=== PATIENT | male | born 1975 | race Caucasian/White ===

== ENCOUNTER 2019-11-08 20:52 | Emergency (ER) | payer OTHER, SELFPAY ==
[2019-11-08 20:53] VITALS: BP 181/116; PULSE 87; RESP 18; TEMP 36.6; O2SAT 94; BMI 46.3
[2019-11-08 20:59] VITALS: BP 169/113; PULSE 92; RESP 18; TEMP 36.6; O2SAT 95
[2019-11-08 21:03] VITALS: BP 169/113; RESP 88; O2SAT 95
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
--- NOTE | 2019-11-08 21:41 | PC.NURSE ---
ED out of patients room. ed physician took C-collar off.
[2019-11-08 22:03] VITALS: BP 131/82; PULSE 88; RESP 18; O2SAT 96
[2019-11-08 22:11] VITALS: BP 131/82; PULSE 83; RESP 18; O2SAT 85
== END 2019-11-08 22:12 | disposition home or self-care (01) ==
PROVIDERS: Emergency Provider Emergency Medicine
DX: Z04.1 Encounter for examination and observation following transport accident (principal); V89.2XXA Person injured in unspecified motor-vehicle accident, traffic, initial encounter
CPT/HCPCS: 99281

== ENCOUNTER → 2020-07-17 17:31 | Outpatient (BNVA) | payer BC, SELFPAY | PROVIDERS: Visit Provider Nurse Practitioner Family | DX: Z20.828 Contact with and (suspected) exposure to other viral communicable diseases (principal) | CPT/HCPCS: 87635 ==

== ENCOUNTER → 2020-07-24 18:21 | Outpatient (BNVA) | payer BC, SELFPAY | PROVIDERS: Visit Provider Nurse Practitioner Family | DX: Z11.59 Encounter for screening for other viral diseases (principal) | CPT/HCPCS: 87635 ==

== ENCOUNTER → 2020-07-31 15:49 | Outpatient (BNVA) | payer BC, SELFPAY | PROVIDERS: Visit Provider Nurse Practitioner Family | DX: Z20.828 Contact with and (suspected) exposure to other viral communicable diseases (principal) | CPT/HCPCS: 87635 ==

== ENCOUNTER 2021-05-19 14:10 | Emergency (ER) | payer OTHER, SELFPAY ==
--- NOTE | 2021-05-19 14:31 | XR_ITS ---
WS: [id number] XR chest 1V portable [id number] REASON FOR EXAM: chest pain FINDINGS: The heart and mediastinum are within normal limits. No active pulmonary parenchymal or pleural disease is noted. The bony thorax is intact. XR/XR chest 1V portable [id number] IMPRESSION: No acute chest abnormality.
--- NOTE | 2021-05-19 14:31 | ECG_ITS ---
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 Measurements Intervals [place] Rate: 99 P: 39 GA: 141 QRS: -30 QRSD: 85 T: 44 QT: 320 QTc: 412 Interpretive Statements SINUS RHYTHM WITH SINUS ARRHYTHMIA BORDERLINE LEFT AXIS DEVIATION [QRS AXIS < -20] Compared to ECG 07/22/2019 17:11:17 No significant changes Electronically Signed On 05-20-2021 0:51:46 CDT by Bob Seals M.D. [id number]
[2021-05-19 15:03] VITALS: BP 123/73; PULSE 107; RESP 19; TEMP 37.4; O2SAT 96; BMI 46.3
--- NOTE | 2021-05-19 16:31 | ECG_ITS ---
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 Measurements Intervals [place] Rate: 95 P: 43 VT: 148 QRS: -16 QRSD: 90 T: 31 QT: 323 QTc: 406 Interpretive Statements SINUS RHYTHM Compared to ECG 05/19/2021 14:56:40 Sinus arrhythmia no longer present Electronically Signed On 05-20-2021 0:53:08 CDT by Bob Seals M.D. [email or web address] domin[facility] campusCellular Biomedicine Group ([employer])/store/OM/[id number]
[2021-05-19 18:56] LABS: Basophils # 0.1 10^3/uL (0.0-0.1); Basophils % 0.7 %; Eosinophils # 0.2 10^3/uL (0.0-0.8); Eosinophils % 1.1 %; Hematocrit 44.1 % (42.0-52.0); Hemoglobin 14.4 g/dL (11.7-16.6); Lymphocytes # 2.4 10^3/uL (0.8-4.8); Lymphocytes % 15.8 %; Mean Corpuscular HGB Conc 32.7 g/dL (30.0-36.0); Mean Corpuscular Hemoglobin 26.1 pg (28.0-34.0); Mean Corpuscular Volume 79.9 fL (80-94); Mean Platelet Volume 10.9 fL (7.4-10.4); Monocytes # 0.7 10^3/uL (0.2-0.9); Monocytes % 4.8 %; Neutrophils # 11.44 10^3/uL (1.8-7.7); Neutrophils % 76.9 %; Nucleated Red Blood Cells % 0 %; Platelet Count 258 10^3/cmm (130-400); Red Blood Count 5.52 10^6/uL (4.1-5.3); Red Cell Distribution Width 14.6 % (12.1-15.1); White Blood Count 14.9 10^3/uL (4.0-10.0)
[2021-05-19 19:15] LABS: Troponin(5th) Baseline 42 ng/L (0-15)
[2021-05-19 19:16] LABS: Alanine Aminotransferase 19 U/L (0-41); Albumin Level 4.5 g/dL (3.5-5.2); Alkaline Phosphatase 75 IU/L (40-130); Anion Gap 19.3 (5-19); Aspartate Amino Transferase 15 U/L (0-40); Blood Urea Nitrogen 13 mg/dL (6-20); Calcium 9.1 mg/dL (8.5-10.5); Carbon Dioxide 22 mmol/L (22-29); Chloride 99 mmol/L (98-107); Globulin 3.2 g/dL (1.3-4.6); Glucose 125 mg/dL (65-115); Osmolality Calculated 284 mOsm/kg (285-295); Potassium 4.3 mmol/L (3.5-5.1); Sodium 136 mmol/L (136-145); Total Bilirubin 0.6 mg/dL (0.15-1.2); Total Protein 7.7 g/dL (6.6-8.7)
[2021-05-19 20:47] LABS: Troponin 5 2HR 38.66 ng/L (0-15)
[2021-05-19 20:49] LABS: Troponin 5 2HR Delta -3.34 ABS# (0-10)
--- NOTE | 2021-05-20 00:56 | ED_ITS ---
HPI - Anxiety General: Chief Complaint: Anxiety Stated Complaint: severe chest pains, weak Time Seen by Provider: 05/20/21 00:56 History of Present Illness: HPI narrative: Patient is a 45-year-old male comes to the ED with chest pain. Patient says he was at work earlier today when symptoms started. He has had episodes like this in the past they were caused by anxiety and a panic attack. He states he was carrying some supplies and all of a sudden felt some heaviness to his chest. Denies any nausea/vomiting, diaphoresis. He does report that during chest heaviness he had some pain going into his left arm. Symptoms resolved when he came to the ED. Associated symptoms: Reports chest pain; Deny chills, fever(s), headache(s), nausea, palpitations or vomiting Review of Systems Const: Denies: fever(s), chills or fatigue Eyes: Denies: change in vision or eye discomfort ENMT: Denies: throat pain, odynophagia, nasal discharge or nasal congestion Card: Reports: chest pain; Denies: palpitations, edema, swelling of feet/ankles, dyspnea on exertion or orthopnea Resp: Denies: dyspnea, productive cough or non-productive cough GI: Denies: abdominal pain, nausea, vomiting, diarrhea, constipation or hematochezia : Denies: flank pain, difficulty urinating, dysuria or hematuria Musc: Denies: neck pain, back pain or extremity swelling Skin/Breast: Denies: rash or new lesions Neuro: Denies: headache(s), numbness in extremities or weakness in extremities PFS ED PFSH: Social History Smoking and tobacco status: never smoked Alcohol intake: current Alcohol intake frequency: holidays/special occasions only Physical Exam Const: COMMON NORMALS: no acute distress, patient oriented x3 and alert GENERAL APPEARANCE: cooperative and comfortable HENMT: COMMON NORMALS: normocephalic HEAD & SCALP: normocephalic MOUTH: Normal oral and palatal mucosa present THROAT: posterior oropharynx normal and uvula midline Neck/C-Spine: COMMON NORMALS: supple GENERAL: Yes normal visual inspection Resp: COMMON NORMALS: normal respiratory effort, No retractions, No use of accessory muscles and clear to auscultation bilaterally AUSCULTATION: clear to auscultation bilaterally Cardio: COMMON NORMALS: regular rate, regular rhythm, S1 normal heart sound present, S2 normal heart sound present, No gallops present (Cardio), No clicks present (Cardio), No murmurs present (Cardio) and Peripheral pulses 2+ throughout RATE: regular rate RHYTHM: regular rhythm HEART SOUNDS: S1 normal heart sound present and S2 normal heart sound present PERIPHERAL PULSES: Peripheral pulses 2+ throughout GI: COMMON NORMALS: Normal to inspection, nondistended, normoactive bowel sounds present, Soft to palpation, non-tender and no masses PALPATION: Yes Soft to palpation : COMMON NORMALS: Yes no CVA tenderness BLADDER/KIDNEY EXAM: Yes no CVA tenderness Back/Pelvis: COMMON NORMALS: no CVA tenderness Extremity: COMMON NORMALS: normal to inspection Neuro: COMMON NORMALS: patient oriented x3 and moves all extremities SENSORIUM/ORIENTATION: Yes alert Skin: GENERAL SKIN EXAM: dry skin Course ED course: Patient said his chest pain is completely resolved and he has not had any chest pain for the past couple hours. Vital Signs: Vital signs: Vital Signs Temperature 99.4 F 05/19/21 15:03 Pulse Rate 89 05/20/21 01:44 Respiratory Rate 18 05/20/21 01:44 Blood Pressure 125/80 05/20/21 01:44 Pulse Oximetry 99 05/20/21 01:44 MDM - Anxiety MDM Narrative: Medical decision making narrative: Patient is a 45-year-old male comes to the ED with chest pain/chest heaviness. He has a history of similar episodes due to anxiety and panic attacks. Symptoms resolved upon arrival to the ED. Vitals stable and exam of patient is benign. Troponin negative, chest x-ray showed no acute findings and EKGs showed normal sinus rhythm with no signs of TX noted. Rest of the labs were unremarkable. Patient was diagnosed with noncardiac chest pain and discharged home. He was told to follow-up with his PCP in 7 to 10 days reevaluation. Return to ED precautions given. Patient understood with plan. Imaging Data^: CXR: Attestation: I personally reviewed and interpreted this imaging study as follows: Radiologist's impression: [address] [address]DWyx ReportSigned Patient: Nicolas Krishna #: [id number]: 1975t#:[id number]/Sex: 45 / MADM Date: 05/19/21Loc: ERRoom/Bed:Attending Dr: Ordering Provider/Ordering MD: Laura Gallego Date of Service: 05/19/21 Procedure(s): XR chest 1V portable [id number] Accession Number(s): [id number] Report Number: [id number] WS: [id number] XR chest 1V portable [id number] REASON FOR EXAM: chest pain FINDINGS: The heart and mediastinum are within normal limits. No active pulmonary parenchymal or pleural disease is noted. The bony thorax is intact. XR/XR chest 1V portable [id number] IMPRESSION: No acute chest abnormality. Dictated By:Elliot Rhoades Jr MDSigned By:Elliot Rhoades Jr MDSigned Date/Time:05/19/211456DD/ 145 EKG Data^: EKG 1: Attestation: I personally reviewed and interpreted this EKG as follows: Interpretation: Chest X-Ray 05/19/21 14:31 IMPRESSION: No acute chest abnormality. [address] [address]Brjzwbzdshbxnmnfca ReportSigned Patient: Nicolas Krishna #: [id number]: 1975Acct#:[id number] ge/Sex: 45 / MADM Date: 05/19/21Loc: ERRoom/Bed:Attending Dr: Ordering Provider/Ordering MD: Laura Gallego Date of Service: 05/19/21 Procedure(s): ECG 12 lead EKG Accession Number(s): [id number] Report Number: [id number] [facility] Test Date: 2021-05-19 Pat Name: Nicolas Krishna Department: Room: Gender: Male Graphics Editor: : 1975 Requested By: Laura Gallego Order Number: [id number] Reading MD: Bob Seals M.D. Measurements Intervals [place] Rate: 99 P: 39 OR: 141 QRS: -30 QRSD: 85 T: 44 QT: 320 QTc: 412 Interpretive Statements SINUS RHYTHM WITH SINUS ARRHYTHMIA BORDERLINE LEFT AXIS DEVIATION [QRS AXIS < -20] Compared to ECG 07/22/2019 17:11:17 No significant changes Electronically Signed On 05-20-2021 0:51:46 CDT by Bob Seals M.D. [id number] Dictated By:oBb Seals MDSigned By:Bob Seals MDSigned Date/Time:05/20/21 0053DD/ 1456 Other EKG comments: Chest X-Ray 05/19/21 14:31 IMPRESSION: No acute chest abnormality. EKG 2: Attestation: I personally reviewed and interpreted this EKG as follows: Interpretation: Chest X-Ray 05/19/21 14:31 IMPRESSION: No acute chest abnormality. [address] [address]Oxcpczcyhyfjbijeaf ReportSigned Patient: Nicolas Krishna #: [id number]: 1975Acct#:[id number]/Sex: 45 / MADM Date: 05/19/21Loc: ERRoo/Bed:Attending Dr: Ordering Provider/Ordering MD: Laura Gallego Date of Service: 05/19/21 Procedure(s): ECG 12 lead EKG Accession Number(s): [id number] Report Number: [id number] [facility] Test Date: 2021-05-19 Pat Name: Nicolas Krishna Department: Room: Gender: Male Graphics Editor: : 1975 Requested By: Laura Gallego Order Number: [id number] Reading MD: Bob Seals M.D. Measurements Intervals [place] Rate: 95 P: 43 OR: 148 QRS: -16 QRSD: 90 T: 31 QT: 323 QTc: 406 Interpretive Statements SINUS RHYTHM Compared to ECG 05/19/2021 14:56:40 Sinus arrhythmia no longer present Electronically Signed On 05-20-2021 0:53:08 CDT by Bob Seals M.D. [id number] Dictated By:Bob Seals MDSigned By:Bob Seals MDSigned Date/Time:05/20/21 0054DD/ 1612 Other EKG comments: Chest X-Ray 05/19/21 14:31 IMPRESSION: No acute chest abnormality. Lab Data: Attestation: I reviewed the patient's lab results. Labs: Lab Results 05/19/21 05/19/21 05/19/21 Range/Units 18:50 18:50 18:50 WBC 14.9 H (4.0-10.0) 10^3/ uL RBC 5.52 H (4.1-5.3) 10^6/u L Hgb 14.4 (11.7-16.6) g/dL Hct 44.1 (42.0-52.0) % MCV 79.9 L (80-94) fL MCH 26.1 L (28.0-34.0) pg MCHC 32.7 (30.0-36.0) g/dL RDW 14.6 (12.1-15.1) % Plt Count 258 (130-400) 10^3/c mm MPV 10.9 H (7.4-10.4) fL Neut % (Auto) 76.9 % Lymph % (Auto) 15.8 % [place] % (Auto) 4.8 % Eos % (Auto) 1.1 % Baso % (Auto) 0.7 % Neut # (Auto) 11.44 H (1.8-7.7) 10^3/u L Lymph # (Auto) 2.4 (0.8-4.8) 10^3/u L [place] # (Auto) 0.7 (0.2-0.9) 10^3/u L Eos # (Auto) 0.2 (0.0-0.8) 10^3/u L Baso # (Auto) 0.1 (0.0-0.1) 10^3/u L Nucleated RBC % (a uto) 0 % Nucleated RBCs # 0.0 /100WBC Sodium 136 (136-145) mmol/L Potassium 4.3 (3.5-5.1) mmol/L Chloride 99 (98-107) mmol/L Carbon Dioxide 22 (22-29) mmol/L Anion Gap 19.3 H (5-19) BUN 13 (6-20) mg/dL Creatinine 0.7 (0.7-1.2) mg/dL GFR Calculation 122.0 (90-130) mL/min Glucose 125 H (65-115) mg/dL Calculated Osmolal ity 284 L (285-295) mOsm/k g Calcium 9.1 (8.5-10.5) mg/dL Total Bilirubin 0.6 (0.15-1.2) mg/dL AST 15 (0-40) U/L ALT 19 (0-41) U/L Alkaline Phosphata se 75 (40-130) IU/L Troponin T Baselin e 42 H (0-15) ng/L Troponin T 120 Min beto (0-15) ng/L Delta Troponin T (0-10) ABS# Total Protein 7.7 (6.6-8.7) g/dL Albumin 4.5 (3.5-5.2) g/dL Globulin 3.2 (1.3-4.6) g/dL 05/19/21 Range/Units 20:23 WBC (4.0-10.0) 10^3/ uL RBC (4.1-5.3) 10^6/u L Hgb (11.7-16.6) g/dL Hct (42.0-52.0) % MCV (80-94) fL MCH (28.0-34.0) pg MCHC (30.0-36.0) g/dL RDW (12.1-15.1) % Plt Count (130-400) 10^3/c mm MPV (7.4-10.4) fL Neut % (Auto) % Lymph % (Auto) % [place] % (Auto) % Eos % (Auto) % Baso % (Auto) % Neut # (Auto) (1.8-7.7) 10^3/u L Lymph # (Auto) (0.8-4.8) 10^3/u L [place] # (Auto) (0.2-0.9) 10^3/u L Eos # (Auto) (0.0-0.8) 10^3/u L Baso # (Auto) (0.0-0.1) 10^3/u L Nucleated RBC % (a uto) % Nucleated RBCs # /100WBC Sodium (136-145) mmol/L Potassium (3.5-5.1) mmol/L Chloride (98-107) mmol/L Carbon Dioxide (22-29) mmol/L Anion Gap (5-19) BUN (6-20) mg/dL Creatinine (0.7-1.2) mg/dL GFR Calculation (90-130) mL/min Glucose (65-115) mg/dL Calculated Osmolal ity (285-295) mOsm/k g Calcium (8.5-10.5) mg/dL Total Bilirubin (0.15-1.2) mg/dL AST (0-40) U/L ALT (0-41) U/L Alkaline Phosphata se (40-130) IU/L Troponin T Baselin e (0-15) ng/L Troponin T 120 Min beto 38.66 H (0-15) ng/L Delta Troponin T -3.34 L (0-10) ABS# Total Protein (6.6-8.7) g/dL Albumin (3.5-5.2) g/dL Globulin (1.3-4.6) g/dL Discharge Plan Discharge Patient Disposition: Home Clinical Impression: Chest pain, non-cardiac Condition: Stable Prescriptions: No Action No Known Home Medications RF: 0 Discharge Orders: Discharge ED (Routine); Ordered 05/20/21 Ordered By: Napoleon Gaspar Discharge Diet: Regular Discharge Activity: Resume usual activity Patient Instructions: Noncardiac Chest Pain (ED) Activity Restrictions/Additional Instructions: Follow-up with medical provider as directed in 7 to 10 days for reevaluation. Punctured drink plenty fluids and stay hydrated. Return to the ER or your medical provider if condition worsens. Please read and understand discharge instructions. Thank you for choosing [facility] for your healthcare needs today. Please realize this is an emergency room and that we are providing you with a medical screening exam and this may not be complete and all inclusive of all the testing and or work up that you may need to determine your ailment or severity of your illness. It is very important that you follow up as instructed or that you return to the Emergency Department should you have concerns or if your condition changes or worsens in any way. Coding Level of Care Code ED Incident Analyst for Jamilah Otero Exam Comprehensive
[2021-05-20 01:44] VITALS: BP 125/80; PULSE 89; RESP 18; O2SAT 99
== END 2021-05-20 01:44 | disposition home or self-care (01) ==
PROVIDERS: Physician Assistant; Emergency Provider Physician Assistant
DX: R07.89 Other chest pain (principal)
CPT/HCPCS: 36415; 71045; 80053; 84484; 85025; 93005; 99283

== ENCOUNTER 2022-04-07 19:42 | Emergency (ER) | payer OTHER, MEDICAID, SELFPAY ==
[2022-04-07 19:52] VITALS: BP 148/91; PULSE 90; RESP 18; TEMP 37; O2SAT 98
--- NOTE | 2022-04-07 19:59 | W.ED.SKABFB ---
HPI - Skin/Abscess/Foreign Bdy General: Chief complaint: Skin/Abscess/Foreign Body Stated complaint: Left arm bug bite/swelling Time Seen by Provider: 04/07/22 19:58 History of Present Illness: 46-year-old male patient comes in today for redness and tenderness to the left antecubital space of the arm. Patient given blood 3 days ago and then noticed some swelling and tenderness to the lateral aspect of the arm. Patient gave blood on the medial aspect. No significant swelling or other abnormality is noted. Patient reported no fever. Patient has had a few bug bites. Associated symptoms: Deny fever(s) Review of Systems Const: Denies: fever(s) Card: Denies: chest pain Resp: Denies: dyspnea Skin/Breast: Reports: erythema PFSH ED PFSH: Social History Smoking and tobacco status: never smoked Alcohol intake: current Alcohol intake frequency: holidays/special occasions only Physical Exam Const: COMMON NORMALS: alert HENMT: COMMON NORMALS: normocephalic HEAD & SCALP: normocephalic Neck/C-Spine: COMMON NORMALS: full ROM Resp: COMMON NORMALS: normal respiratory effort Cardio: COMMON NORMALS: regular rate RATE: regular rate Neuro: SENSORIUM/ORIENTATION: Yes alert Skin: NARRATIVE SKIN EXAM: Area of redness and induration noted to the antecubital space of the left arm on the lateral side. Patient also had some mild bruising and a needle puncture jung on the medial aspect of the arm. There is no redness or induration noted on that spot. LESIONS: lesion noted Course Vital Signs: Vital signs: Vital Signs Temperature 98.6 F 04/07/22 19:52 Pulse Rate 90 04/07/22 19:52 Respiratory Rate 18 04/07/22 19:52 Blood Pressure 148/91 04/07/22 19:52 Pulse Oximetry 98 04/07/22 19:52 MDM - Skin/Abscess/Foreign Bdy Medicial Decision Making Patient comes in today for concerns of redness and tenderness to the left arm. Patient has a small area of redness approximately 4 cm with a centralized indurated lesion to the lateral antecubital space. Differential diagnosis includes cellulitis, abscess, thrombophlebitis, local reaction to insect bite. I suspect that this is most likely an insect bite that is either got a mild infection or just some localized reaction. I do not believe this is secondary to patient's IV from his blood donation as the lesion is lateral to the injection site. Patient reported understanding of care plan we will go ahead and cover with antibiotics, and some steroid cream to help with discomfort. Patient reported understanding and agreed to plan. Discharge Plan Discharge Patient Disposition: Home Clinical Impression: Infected insect bite Qualifiers: Encounter type: initial encounter Qualified Code(s): W57.XXXA - Bitten or stung by nonvenomous insect and other nonvenomous arthropods, initial encounter Condition: Stable Prescriptions: New amoxicillin-pot clavulanate 875-125 mg tablet 1 tab PO BID Qty: 14 0RF triamcinolone acetonide 0.1 % cream 1 applic topical BID Qty: 30 0RF Discharge Orders: Discharge ED (Routine); Ordered 04/07/22 Ordered By: Mak Mcnulty Discharge Diet: Usual diet Discharge Activity: Increase activity as tolerated Patient Instructions: Cellulitis (ED) Activity Restrictions/Additional Instructions: Take antibiotics 1 tablet twice a day for 7 days. Drink plenty of water with medication. Use triamcinolone cream 2-3 times daily to the area of redness until improved. Follow-up with primary care as needed. Return to ER for new concerns. Coding Level of Care Code ED Harness Builder for Jamilah Oteor
[2022-04-07] MEDS: amoxicillin-clav 875-125 mg Tablet 1 TAB PO (20:25)
[2022-04-07] MEDS: triamcinolone 0.1% cream 15 gm 1 APPLIC TOPICAL (20:25)
== END 2022-04-07 20:27 | disposition home or self-care (01) ==
PROVIDERS: Emergency Provider Nurse Practitioner Family
DX: L08.9 Local infection of the skin and subcutaneous tissue, unspecified (principal); S50.362A Insect bite (nonvenomous) of left elbow, initial encounter; W57.XXXA Bitten or stung by nonvenomous insect and other nonvenomous arthropods, initial encounter
CPT/HCPCS: 99283

== ENCOUNTER 2022-08-12 06:00 | Outpatient (RCR) | payer OTHER, MEDICAID, SELFPAY | END 2022-08-23 23:59 | disposition home or self-care (01) | LOC: SPT 06:00 | PROVIDERS: Visit Provider Family Medicine Adult Medicine | DX: M54.6 Pain in thoracic spine (principal) | CPT/HCPCS: 97110; 97161 ==

== ENCOUNTER 2022-08-24 06:00 | Outpatient (RCR) | payer OTHER, MEDICAID, SELFPAY | END 2022-09-22 23:59 | disposition home or self-care (01) | LOC: SPT 06:00 | PROVIDERS: Visit Provider Family Medicine Adult Medicine | DX: M54.6 Pain in thoracic spine (principal) | CPT/HCPCS: 97110 ==

== ENCOUNTER 2022-09-23 06:00 | Outpatient (RCR) | payer OTHER, MEDICAID, SELFPAY | END 2022-09-30 11:43 | disposition home or self-care (01) | LOC: SPT 06:00 | PROVIDERS: Visit Provider Family Medicine Adult Medicine | DX: M54.6 Pain in thoracic spine (principal) | CPT/HCPCS: 97110 ==

== ENCOUNTER 2023-01-11 08:15 | Outpatient (CLI) | payer MEDICAID, SELFPAY ==
--- NOTE | 2023-01-11 08:25 | XR_ITS ---
WS: [id number] EXAMINATION: XR thoracic spine 3V* [id number] REASON FOR EXAM: Thoracic spine pain COMPARISON: None available. ORDER DATE: 01/11/2023 8:25 AM FINDINGS: There is normal alignment. The disc spaces are well-maintained. There is generalized marginal osteoph ytes throughout most of the thoracic line without focal osteolytic or osteoblastic change. XR/XR thoracic spine 3V* [id number] IMPRESSION: Minor osteoarthritic degenerative changes.
== END 2023-01-11 08:16 | disposition home or self-care (01) ==
LOC: RAD 08:19
PROVIDERS: PCP Family Medicine Adult Medicine; Visit Provider Physician Assistant
DX: M47.894 Other spondylosis, thoracic region (principal); M54.6 Pain in thoracic spine
CPT/HCPCS: 72072

== ENCOUNTER → 2023-03-31 09:01 | Outpatient (BNVA) | payer MEDICAID, SELFPAY | PROVIDERS: PCP Family Medicine Adult Medicine; Visit Provider Physician Assistant | DX: M54.50 Low back pain, unspecified (principal); M54.6 Pain in thoracic spine | CPT/HCPCS: 72072; 72110 ==

== ENCOUNTER 2025-08-01 17:04 | Emergency (ER) | payer MEDICAID, SELFPAY ==
--- NOTE | 2025-08-01 16:53 | XRR_ITS ---
PROCEDURE INFORMATION: Exam: XR Chest Exam date and time: 08/01/2025 5:11 PM Age: 49 years old Clinical indication: Pain; Chest pressure; Additional info: Chest pain TECHNIQUE: Imaging protocol: Radiologic exam of the chest. Views: 1 view. COMPARISON: CR XR chest 1V portable [id number] 05/19/2021 2:43 PM FINDINGS: Lungs: Unremarkable. No consolidation. Pleural spaces: Unremarkable. No pleural effusion. No pneumothorax. Heart/Mediastinum: Unremarkable. No cardiomegaly. Vasculature: Mild aortic atherosclerosis. Bones/joints: Unremarkable. XR/XR chest 1V portable [id number] IMPRESSION: No acute findings.
[2025-08-01 17:05] VITALS: BP 137/106; PULSE 102; RESP 20; TEMP 37.3; O2SAT 98; BMI 41.9
--- NOTE | 2025-08-01 17:09 | ECG_ITS ---
[employer] [facility] Test Date: 2025-08-01 Pat Name: Nicolas Krishna Department: Room: Gender: Male Cooperative Education Coordinator: : 1975 Requested By: Bre Lazo Order Number: [id number] Celena MD: AISLINN SUN Measurements Intervals [place] Rate: 105 P: 42 NV: 149 QRS: -23 QRSD: 90 T: 29 QT: 315 QTc: 417 Interpretive Statements SINUS TACHYCARDIA BORDERLINE LEFT AXIS DEVIATION [QRS AXIS < -20] ABNORMAL RHYTHM ECG Compared to ECG 05/19/2021 16:12:26 Sinus rhythm no longer present Electronically Signed On 08-04-2025 23:18:37 CDT by AISLINN SUN [id number]
--- NOTE | 2025-08-01 17:25 | W.ED.ARRPALP ---
HPI - Arrhythmia/Palpitations General: Chief Complaint: Arrhythmia/Palpitations Stated Complaint: SVT - near syncope Time Seen by Provider: 08/01/25 17:05 History of Present Illness: 49-year-old man with a history of anxiety, degenerative disc disease but no known other medical problems who presents to the emergency room by ambulance after having a near syncopal episode. He became very lightheaded. The EMS reports that his heart rate was around 200. He was given some adenosine heart rate came down. On presentation here he is around 100. No chest pain. No abdominal pain. No nausea or vomiting. No altered mental status. No focal motor deficits. He had no previous episodes Related Data Previous Rx's ?Medication ?Instructions ?Recorded fluticasone propionate 50 1 spray intranasal DAILY PRN nasal 10/18/23 mcg/actuation nasal congestion #16 grams spray,suspension (Flonase Allergy Relief) metoprolol tartrate 25 mg tablet 12.5 mg (1/2 x 25 mg) PO BID #30 08/01/25 tabs Allergies Allergy/AdvReac Type Severity Reaction Status Date / Time No Known Allergies Allergy Verified 01/14/25 08:24 Review of Systems Narrative: Constitutional symptoms: Negative except as documented in HPI. Skin symptoms: Negative except as documented in HPI. Eye symptoms: Negative except as documented in HPI. ENMT symptoms: Negative except as documented in HPI. Respiratory symptoms: Negative except as documented in HPI. Cardiovascular symptoms: Negative except as documented in HPI. Gastrointestinal symptoms: Negative except as documented in HPI. Genitourinary symptoms: Negative except as documented in HPI. Musculoskeletal symptoms: Negative except as documented in HPI. Neurologic symptoms: Negative except as documented in HPI. Psychiatric symptoms: Negative except as documented in HPI. Endocrine symptoms: Negative except as documented in HPI. PFS ED PFSH: Medical History (Updated 08/01/25 @ 19:01 by Bre Mars MD) Left-sided chest wall pain Dysplastic nevus Basal cell carcinoma of head Basal cell carcinoma of back Skin tags, multiple acquired Dermatofibroma of eyelid Left-sided thoracic back pain Anxiety Social History (Updated 01/14/25 @ 08:50 by Jami Lennon NP) Smoking and tobacco/nicotine status: current every day tobacco/nicotine user smokeless tobacco Smokeless tobacco user: chewing tobacco Alcohol intake: current Alcohol intake frequency: holidays/special occasions only Alcohol type: beer Substance/Drug Use: never Adopted: No Caregiver/support person: No Lives independently: Yes Physical Exam Narrative: EXAM NARRATIVE: General: Alert, no acute distress. Skin: Warm, dry. Head: Normocephalic, atraumatic. Neck: Supple, trachea midline. Eye: Extraocular movements are intact. Ears, nose, mouth and throat: mucosa moist. Cardiovascular: Regular, mildly tachycardic, normal peripheral perfusion. Respiratory: Lungs are clear to auscultation, respirations are non-labored, breath sounds are equal, Symmetrical chest wall expansion. Gastrointestinal: Soft, Nontender, Non distended Musculoskeletal: Normal ROM, no deformity. Neurological: Alert and oriented, No focal neurological deficit observed. Psychiatric: Cooperative, appropriate mood & affect. Course Vital Signs: Vital signs: Vital Signs Temperature 99.1 F 08/01/25 17:05 Pulse Rate 95 08/01/25 19:23 Respiratory Rate 20 H 08/01/25 19:23 Blood Pressure 132/87 08/01/25 19:23 Pulse Oximetry 96 08/01/25 19:23 Oxygen Delivery Me thod Room Air 08/01/25 18:22 MDM - Arrhythmia/Palpitations Medical Decision Making Medical decision making: Differential diagnosis including but not limited to and based on the above HPI, review of systems and physical exam: for patient with palpitations: atrial fibrillation with rapid ventricular response. ventricular tachycardia. sinus tachycardia. PVCs. also concern for underlying issues causing tachycardia. Infection, electrolyte abnormalities and thyroid issues. Orders placed to evaluate differential diagnosis based on the above differential, HPI and physical exam EKG: Time 1709. Rate 105. Sinus tachycardia, No ST-T changes, no ectopy, normal NH & QRS intervals, This was reviewed and interpreted by myself the ER physician at 1715 Chest x-ray: No acute process. No infiltrate. No pneumothorax. This was reviewed and interpreted by myself the emergency room physician. I also reviewed the radiology report. Lab Review: Laboratory results were reviewed and interpreted by myself the emergency room physician. Mild leukocytosis. No anemia. No renal failure. Urinalysis is negative for infection. Flu COVID and RSV are negative. Troponin is negative. Consultation: I spoke with Dr. Seals who is on-call for cardiology. He recommends follow-up within about a week and an urgent monitor car operator. We both agree that the patient driving is likely not a good idea and I discussed this with the patient and he agrees. Syncope while driving a schoolbus or an automobile could be tragic. I reviewed the patient's medical record. Reexamination: Patient remained stable. No increased work of breathing. No altered mental status. No focal motor deficits. Assessment and plan: Tachycardia Hypertension ?IV labetalol in the emergency room. Home on metoprolol - Discharged home - Discussed plan with patient. Answered any questions. - Evaluation and treatment of this problem were appropriate in the emergency setting. Lab Data 08/01/25 17:10 08/01/25 17:10 Radiology Impressions Chest X-Ray 08/01/25 16:53 IMPRESSION: No acute findings. Laboratory Results WBC 13.91 10^3/uL (3.29-11.43) H 08/01/25 17:10 RBC 5.66 10^6/uL (3.85-5.65) H 08/01/25 17:10 Hgb 15.00 g/dL (11.27-16.99) 08/01/25 17:10 Hct 45.4 % (37-53) 08/01/25 17:10 MCV 80.2 fl (82-101) L 08/01/25 17:10 MCH 26.5 pg (27-33) L 08/01/25 17:10 MCHC 33.0 g/dL (30-55) 08/01/25 17:10 RDW 14.1 % (12.1-15.1) 08/01/25 17:10 Plt Count 339 10^3/cmm (157-399) 08/01/25 17:10 MPV 10.3 fL (7.4-10.4) 08/01/25 17:10 Neut % (Auto) 60.4 % 08/01/25 17:10 Lymph % (Auto) 27.6 % 08/01/25 17:10 [place] % (Auto) 7.1 % 08/01/25 17:10 Eos % (Auto) 3.1 % 08/01/25 17:10 Baso % (Auto) 1.0 % 08/01/25 17:10 Neut # (Auto) 8.40 10^3/uL (1.8-7.7) H 08/01/25 17:10 Lymph # (Auto) 3.8 10^3/uL (0.8-4.8) 08/01/25 17:10 [place] # (Auto) 1.0 10^3/uL (0.2-0.9) H 08/01/25 17:10 Eos # (Auto) 0.4 10^3/uL (0.0-0.8) 08/01/25 17:10 Baso # (Auto) 0.1 10^3/uL (0.0-0.1) 08/01/25 17:10 Nucleated RBC % (auto) 0 % 08/01/25 17:10 Nucleated RBCs # 0.0 /100WBC 08/01/25 17:10 Sodium 140 mmol/L (136-145) 08/01/25 17:10 Potassium 4.5 mmol/L (3.5-5.1) 08/01/25 17:10 Chloride 98 mmol/L (98-107) 08/01/25 17:10 Carbon Dioxide 26 mmol/L (22-29) 08/01/25 17:10 Anion Gap 20.5 (5-19) H 08/01/25 17:10 BUN 15 mg/dL (6-20) 08/01/25 17:10 Creatinine 0.8 mg/dL (0.7-1.2) 08/01/25 17:10 GFR Calculation 102.7 mL/min (90-130) 08/01/25 17:10 Glucose 160 mg/dL (65-115) H 08/01/25 17:10 Calculated Osmolality 294 mOsm/kg (285-295) 08/01/25 17:10 Lactic Acid 2.4 mmol/L (0.5-2.2) H 08/01/25 17:10 Calcium 10.1 mg/dL (8.5-10.5) 08/01/25 17:10 Magnesium 1.9 mg/dL (1.7-2.3) 08/01/25 17:10 Total Bilirubin 0.6 mg/dL (0.15-1.2) 08/01/25 17:10 AST 18 U/L (0-40) 08/01/25 17:10 ALT 29 U/L (0-41) 08/01/25 17:10 Alkaline Phosphatase 81 U/L (40-130) 08/01/25 17:10 Troponin T Baseline < 6 ng/L (0-15) 08/01/25 17:10 Troponin T 120 Minute 11.88 ng/L (0-15) 08/01/25 19:08 Delta Troponin T 5.39736 ABS# (0-10) 08/01/25 19:08 NT-Pro-B Natriuret Pep < 36 pg/mL (0-125) 08/01/25 17:10 Total Protein 8.3 g/dL (6.6-8.7) 08/01/25 17:10 Albumin 4.8 g/dL (3.5-5.2) 08/01/25 17:10 Globulin 3.5 g/dL (1.3-4.6) 08/01/25 17:10 TSH 4.06 uIU/mL (0.27-4.20) 08/01/25 17:10 Urine Color Yellow (Yellow) 08/01/25 17:33 Urine Appearance Clear (CLEAR) 08/01/25 17:33 Urine pH 6.0 (5-7) 08/01/25 17:33 Ur Specific [place] 1.007 (1.005-1.030) 08/01/25 17:33 Urine Protein Negative (Negative) 08/01/25 17:33 Urine Glucose (UA) Trace (Normal) H 08/01/25 17:33 Urine Ketones Negative (Negative) 08/01/25 17:33 Urine Blood Negative (Negative) 08/01/25 17:33 Urine Nitrate Negative (Negative) 08/01/25 17:33 Urine Bilirubin Negative (Negative) 08/01/25 17:33 Urine Urobilinogen 0.2 mg/dL (Negative) 08/01/25 17:33 Ur Leukocyte Esterase Negative (Negative) 08/01/25 17:33 Urine RBC None /hpf (0-2) 08/01/25 17:33 Urine WBC None /hpf (0-5) 08/01/25 17:33 Ur Squamous Epith Cells None /hpf (0-5) 08/01/25 17:33 Amorphous Sediment Not Reportable 08/01/25 17:33 Urine Bacteria None /hpf (NONE) 08/01/25 17:33 Urine Mucus None /hpf 08/01/25 17:33 Influenza A (PCR) Negative (Negative) 08/01/25 17:18 Influenza Type B (PCR) Negative (Negative) 08/01/25 17:18 RSV (PCR) Negative (Negative) 08/01/25 17:18 SARS-CoV-2 (PCR) Negative (Negative) 08/01/25 17:18 All radiology interpretation(s) finalized by discharge Discharge Plan Discharge Patient Disposition: Home Clinical Impression: Supraventricular tachycardia Condition: Stable Prescriptions: New metoprolol tartrate 25 mg tablet 12.5 mg PO BID Qty: 30 1RF No Action fluticasone propionate [Flonase Allergy Relief] 50 mcg/actuation spray,suspension 1 spray intranasal DAILY PRN (Reason: nasal congestion) Qty: 16 0RF Rx Instructions: administer into each nostril Discharge Orders: Discharge ED (Routine); Ordered 08/01/25 Ordered By: Bre Mars Referrals: Santiago Bejarano MD [Primary Care Provider, Family Practice] Bob Seals M.D [Physician, Cardiology] - 4-7 days Referral Note: Please call for a follow-up appointment with cardiology Discharge Diet: Usual diet Discharge Activity: Increase activity as tolerated Patient Instructions: Opioid Safety, Pain Management, Patient Portal & [place] Instructions Activity Restrictions/Additional Instructions: HOld off driving until you are cleared by your pcp or cardiogy Thank you for choosing [facility] for your healthcare needs today. You have been screened and evaluated and felt safe for discharge. Health conditions do change or evolve sometimes and as such it is important that you follow up with your Primary Doctor to be re checked, 3-5 days is a general good time frame for follow up. You are always welcome to return to the ED for re assessment if your symptoms are worsening or you have new concerns Stand Alone Forms: Work/School Release Print Language: Welsh Coding Level of Care Code ED Geriatric Nurse for Jamilah Otero
[2025-08-01 17:39] LABS: Hematocrit 45.4 % (37-53); Hemoglobin 15.00 g/dL (11.27-16.99); Mean Corpuscular HGB Conc 33.0 g/dL (30-55); Mean Corpuscular Hemoglobin 26.5 pg (27-33); Mean Corpuscular Volume 80.2 fl (82-101); Nucleated Red Blood Cells % 0 %; Platelet Count 339 10^3/cmm (157-399); Red Blood Count 5.66 10^6/uL (3.85-5.65); White Blood Count 13.91 10^3/uL (3.29-11.43)
[2025-08-01] MEDS: labetalol 5 mg/mL SDV 20mL 20 MG IVP (17:50)
[2025-08-01 18:04] VITALS: BP 145/105; PULSE 99; O2SAT 95
[2025-08-01 18:22] VITALS: BP 131/87; PULSE 99; RESP 17; O2SAT 95
[2025-08-01 18:27] LABS: Lactic Sepsis W/Reflex 2.4 mmol/L (0.5-2.2)
[2025-08-01 18:33] LABS: Troponin(5th) Baseline < 6 ng/L (0-15)
[2025-08-01 18:35] LABS: Alanine Aminotransferase 29 U/L (0-41); Albumin Level 4.8 g/dL (3.5-5.2); Alkaline Phosphatase 81 U/L (40-130); Anion Gap 20.5 (5-19); Aspartate Amino Transferase 18 U/L (0-40); Blood Urea Nitrogen 15 mg/dL (6-20); Calcium 10.1 mg/dL (8.5-10.5); Carbon Dioxide 26 mmol/L (22-29); Chloride 98 mmol/L (98-107); Creatinine Clr Calc Pharmacy 143.9513; Globulin 3.5 g/dL (1.3-4.6); Glucose 160 mg/dL (65-115); Magnesium 1.9 mg/dL (1.7-2.3); NT Pro B Type Natriuretic Pept < 36 pg/mL (0-125); Osmolality Calculated 294 mOsm/kg (285-295); Potassium 4.5 mmol/L (3.5-5.1); Sodium 140 mmol/L (136-145); Thyroid Stimulating Hormone 4.06 uIU/mL (0.27-4.20); Total Protein 8.3 g/dL (6.6-8.7)
[2025-08-01 18:44] LABS: Glucose Urine UA Trace (Normal); Nitrate Urine Negative (Negative); Specific Gravity, Urine 1.007 (1.005-1.030)
[2025-08-01 18:46] VITALS: BP 135/81; PULSE 104; RESP 17; O2SAT 95
[2025-08-01 19:15] LABS: Respiratory Syncytial Virus Ce NEGATIVE (Negative); SARS-CoV-2 PCR NEGATIVE (Negative)
--- NOTE | 2025-08-01 19:15 | DCPLANNER ---
Sent to cardiology
[2025-08-01 19:20] LABS: Reflex Lactate Order REFLEX LACTIC ORDERD
[2025-08-01 19:23] VITALS: BP 132/87; PULSE 95; RESP 20; O2SAT 96
[2025-08-01 19:32] LABS: Troponin 5 2HR 11.88 ng/L (0-15); Troponin 5 2HR Delta 5.88001 ABS# (0-10)
== END 2025-08-01 19:24 | disposition home or self-care (01) ==
PROVIDERS: Emergency Provider Emergency Medicine; PCP Family Medicine Adult Medicine
DX: I47.10 Supraventricular tachycardia, unspecified (principal); Z11.52 Encounter for screening for COVID-19; F17.220 Nicotine dependence, chewing tobacco, uncomplicated; Z85.828 Personal history of other malignant neoplasm of skin
CPT/HCPCS: 36415; 71045; 80053; 81001; 83605; 83735; 83880; 84443; 84484; 85025; 87040; 87637; 93005; 96374; 99285; J3490; J9999

== ENCOUNTER → 2025-08-06 14:13 | Outpatient (BNVA) | payer MEDICAID, SELFPAY | PROVIDERS: PCP Family Medicine; Referring Provider Emergency Medicine; Visit Provider Internal Medicine Cardiovascular Disease | DX: R07.89 Other chest pain (principal); R94.31 Abnormal electrocardiogram [ECG] [EKG] | CPT/HCPCS: 93005 ==

== ENCOUNTER 2025-10-07 11:34 | Outpatient (CLI) | payer MEDICAID, SELFPAY ==
--- NOTE | 2025-10-07 | ECG_ITS ---
[employer] Test Date: 2025-10-07 Pat Name: Nicolas Krishna Department: Room: Gender: Male University Registrar: : 1975 Requested By: Daniela Sun Order Number: [id number] Reading MD: DANIELA SUN Interpretive Statements Lung unchanged pre/post procedure; Intraprocedure shortess of breath; Symptoms resoled by discharge EXERCISE DATA: The patient was exercised by Casey protocol. Baseline heart rate was 84 beats per minute. Baseline blood pressure was 135/82 millimeters of mercury. Target heart rate was 170 beats per minute. Maximum heart rate achieved was 152, which was 89 % of the target heart rate. Maximum blood pressure was 167/87 millimeters of mercury. Total exercise time was 3 minutes 57 seconds. Maximum METs achieved was 7.0, maximum VO2 was 24.5. The reason for ending the test was maximum effort achieved. The patient complained of shortness of breath during the stress test, which then resolved at the end of the test. ELECTROCARDIOGRAM: BASELINE: Showed sinus rhythm, normal axis, no significant ST-T changes at the baseline noted. EXERCISE: At the peak exercise level, no significant ST-T changes suggestive of ischemia noted. RECOVERY: During the recovery period, heart rate dropped appropriately. No significant ST-T changes in the recovery suggestive of ischemia noted. CONCLUSION: 1. Exercise capacity poor. 2. Heart rate response was tachycardic. 3. Blood pressure response was appropriate. 4. Symptoms not suggestive of ischemia. 5. Electrocardiogram portion of the stress test was not suggestive of ischemia. 6. Nuclear scan will be documented separately. Electronically Signed On 10-07-2025 12:30:51 BULK TANK DRIVER by DANIELA SUN [email or web address]
[2025-10-07 11:56] VITALS: BMI 41.3
[2025-10-07 12:13] VITALS: BP 132/85; PULSE 105
== END 2025-10-07 11:35 | disposition home or self-care (01) ==
PROVIDERS: PCP Family Medicine; Visit Provider Internal Medicine Cardiovascular Disease
DX: R07.9 Chest pain, unspecified (principal)
CPT/HCPCS: 93017